=== PATIENT | female | born 1990 | race Caucasian/White ===

== ENCOUNTER 2019-06-24 09:36 | Emergency (ER) | payer OTHER, SELFPAY ==
[2019-06-24 09:40] VITALS: BP 130/79; PULSE 60; RESP 17; TEMP 36.6; O2SAT 100; BMI 37.9
--- NOTE | 2019-06-24 09:46 | ED_ITS ---
HPI - Headache General: Chief Complaint: Headache Stated Complaint: Migrane 4 days Time Seen by Provider: 06/24/19 09:43 Source: patient Mode of arrival: ambulatory Limitations: no limitations History of Present Illness: HPI Narrative: migraine WEATHERS x 4 days MD elicited complaint: headache and migraine Pertinent past history: migraines Onset (ago): day(s) Onset description: gradually Location: right, occipital and down into neck Pain scale (0-10): 8 Quality & Timing: pain radiation and similar to previous headaches Exacerbating factors: none Relieving factors: nothing Context: occurred at rest Associated symptoms: Reports no associated symptoms; Deny confusion, fever(s), nausea or vomiting Treatments prior to arrival: other (IM toradol/phenergan by PCP yesterday) Review of Systems Const: Denies: fever, chills or body aches Eyes: Denies: change in vision, blurry vision, blind spots, photophobia, eye discomfort or eye discharge ENMT: Denies: enlarged tonsils or painful swallowing GI: Denies: nausea or vomiting Neuro: Reports: headache; Denies: numbness in extremities, weakness in extremities, changes in sensation, lack of coordination, difficulty walking, dizziness or confusion PFSH ED PFSH: Statuses (acute, chronic, etc) shown below reflect problem list status as previously entered and may not be historically accurate Social History Smoking and tobacco status: never smoked Alcohol intake: never Physical Exam Const: COMMON NORMALS: no apparent distress, oriented x3, alert and well nourished NUTRITIONAL APPEARANCE: obese HENMT: COMMON NORMALS: normocephalic, head/scalp atraumatic, external ears normal, EAC's normal and TM's normal bilaterally HEAD & SCALP: normocephalic and atraumatic FACE & SINUS: normal facial exam EXTERNAL EAR: Yes external ears normal EXTERNAL AUDITORY CANAL: EAC's normal TYMPANIC MEMBRANE: TM's normal bilaterally THROAT: posterior oropharynx normal Eye: COMMON NORMALS: PERRL, EOMs intact bilaterally and conjunctivae normal CONJUNCTIVA: Yes conjunctivae normal PUPIL: Yes PERRL Neuro: JEFFRY COMA SCALE: document GCS findings [place] coma scale eye opening: Spontaneous [place] coma scale verbal response: Orientated [place] coma scale motor response: Obey commands [place] coma scale total score: 15 COMMON NORMALS: oriented x3, no focal motor deficits and no sensory deficits noted SENSORIUM/ORIENTATION: Yes alert SPEECH: speech normal Course Vital Signs: Vital signs: Vital Signs Temperature 97.8 F 06/24/19 09:40 Pulse Rate 59 L 06/24/19 11:12 Respiratory Rate 16 06/24/19 11:05 Blood Pressure 110/66 06/24/19 11:12 Pulse Oximetry 100 06/24/19 11:12 MDM - Headache MDM Narrative: Medical decision making narrative: pt comes in with typical migraine WEATHERS; WEATHERS down from an 01/16 to a -09/16; she feels comfortable going home Discharge Plan Discharge Patient Disposition: Home, Self-Care Clinical Impression: Migraine Qualifiers: Migraine type: without aura Status migrainosus presence: with status migrainosus Intractability: not intractable Qualified Code(s): G43.001 - Migraine without aura, not intractable, with status migrainosus Condition: Stable Prescriptions: No Action ibuprofen 800 mg Tablet 800 mg PO Q6H PRN (Reason: Pain) RF: 0 Vitamin D2 50,000 unit capsule 50,000 unit PO Q7D RF: 0 medroxyprogesterone 150 mg/mL syringe 150 mg IM Q3M RF: 0 Skelaxin 800 mg Tablet 800 mg PO BID RF: 0 Discharge Orders: Discharge Order (Routine); Ordered 06/24/19 Ordered By: Roseline Rojo Referrals: , [Primary Care Provider] - Discharge Diet: Usual diet Discharge Activity: Increase activity as tolerated Discharge Date/Time: 06/24/19 11:12 Coding Level of Care Code ED [employer] [facility] [facility] Exam Problem Focused
[2019-06-24 09:54] VITALS: O2SAT 98
[2019-06-24] MEDS: ketorolac 30 mg/mL INJ 15 MG IVP (10:18)
[2019-06-24] MEDS: sodium chloride 0.9% 1,000 ML 999 ML IV (10:18)
[2019-06-24] MEDS: ondansetron 2 mg/ML SDV 2 mL 4 MG IVP (10:18)
[2019-06-24] MEDS: diphenhydrAMINE 50 mg/mL SDV 1mL IVP (10:19)
[2019-06-24 11:05] VITALS: BP 110/66; PULSE 69; RESP 16; O2SAT 100
[2019-06-24 11:12] VITALS: BP 110/66; PULSE 59; O2SAT 100
== END 2019-06-24 11:12 | disposition home or self-care (01) ==
PROVIDERS: Emergency Provider Physician Assistant
DX: G43.001 Migraine without aura, not intractable, with status migrainosus (principal)
CPT/HCPCS: 96360; 96374; 99281; J1200; J1885; J2405; J7030

== ENCOUNTER 2019-12-23 14:17 | Outpatient (CLI) | payer OTHER, SELFPAY ==
--- NOTE | 2019-12-23 17:50 | ONC CON_ITS ---
Dr. Sanchez New Patient Note Patient: Lorena Arthur Unit #: [id number]: 1990 Dicatated By: Fausto Sanchez M.D.Date of Visit: Dec 23, 2019 Onc MED New Patient/Consult Referring Physician: Isabel Gomez Chief Complaint: Low B12. History of Present Illness: This is a 29 year-old woman with vitamin B12 deficiency. She had moved to this area from [place] in March 2019. Prior to that, she had been found to have a low B12 level and a low vitamin D level, and she had been started on vitamin D2 and oral vitamin B12 supplements. She had then been seen for follow-up at the [facility] in [place] on 12/06/2019. Her laboratory studies at that time included CBC which showed normal hemoglobin at 14.7 g with hematocrit 42.9%. The red cell indices were normal. The white blood cell count was 7300 and the platelet count was 248,000. Her comprehensive metabolic profile showed normal renal function with BUN 8 and creatinine 0.69 mg/dL. The total bilirubin and the liver enzymes were normal. TSH was normal at 2.210 ???IU/mL. LDH was normal at 163 IU/L. The B12 level was low at <150 pg/mL. Folate was in the low normal range at 3.5 ng/mL. The homocysteine level was normal at 10.0 ???mol/L, and a methylmalonic acid level was also normal at 117 nmol/L. With those findings, she began her first scheduled weekly B12 injection on 12/20/2019. She complains that she has been extremely tired and weak. She is able to do some light work. ECOG score is 1. She says she is not hungry and that she generally eats just 1 meal a day. Her weight, though, is stable. She does not have fever, night sweats, or hot flashes. She reports having neuropathy symptoms in her hands and she also has a tingling pain in her toes. She has had some allergy related sinus symptoms with cough, and she also has some shortness of breath. At times she feels like there is something sitting on her chest. She sometimes has nausea after eating, especially in the mornings, and she also has some acid reflux symptoms. Bowel and bladder function have been okay. She has joint pain, mainly in her left knee, right ankle, and right shoulder. She also has a lot of neck pain, and she sometimes has headache with it. She has had significant benefit with chiropractic therapy. Past Medical History: Her medical history includes anxiety/depression, migraine headaches, and vitamin D deficiency. Past Surgical History: Her surgical/procedural history includes appendectomy, Caesarean section x 3, umbilical hernia repair, and tonsillectomy. Medications: CVS D3 1 Capsule (of 125 mcg ) Oral q 7 days, Vitamin B12 1 Injection q 30 days Allergies: Bleach, Dilaudid, Levaquin, Morphine Sulfate, Procardia, Sulfa Antibiotics, and Tetanus-Diphtheria Toxoids Td. Social History: Ms. Arthur is . She is a non-smoker. She has only rare alcohol use. Family History: Both parents are living, father at age 53 and mother at age 54. He has diabetes. She has had a stroke. A brother and a sister are in good health. Her maternal grandmother had breast cancer and lymphoma. Her maternal grandfather had pancreatic cancer. Review Of Symptoms: Constitutional - She generally feels tired and her energy is low. She can do some light housework. Her appetite is poor but she is able to eat. Her weight is stable. No fever, night sweats, or hot flashes. ECOG score is 1, Eyes - No change in vision, ENMT - She has chronic allergies. She is taking Zyrtec. No mouth sores. No sore throat or difficulty swallowing. She is having some difficulty with her hearing, Hematologic/Lymphatic - She bruises easily, Respiratory - She gets short of breath. She uses an inhaler as needed. No cough. No pleuritic pain or hemoptysis, Cardiovascular - No angina pain. No palpitations, Gastrointestinal - She has nausea, mostly in the mornings. No vomiting. She has acid reflux. No diarrhea or constipation. No blood in the stool or black stools, Genitourinary (F) - No dysuria or hematuria. No urinary frequency. No urgency or incontinence, Musculoskeletal - She has joint pain in her leftt knee, in her ankle, and in her right shoulder. She also has neck pain. She sees a chiropractor for it, Integumentary - No skin complications, Neurologic - She gets migraine headaches related to neck pain. No dizziness. She has numbness and tingling in her hands and feet. No other focal neurologic symptoms, Psychiatric - She has some anxiety and depression. She does not sleep well. Vital Signs: Performed on Dec 23, 2019 14:40: 0, 38.15 (HIGH), 2.20 sq.m, 67.00 in, 97 %, 93 /min, 22 /min, 124/90 mm(hg), 98.0 F (LOW), and 243.6 lbs (HIGH). Physical Examination: Constitutional - She appears to be in good general health, Eyes - Sclerae nonicteric. Conjunctivae clear, ENMT - No lesions noted in the oral cavity, Neck - No mass or thyromegaly, Hematologic/Lymphatic - No cervical, clavicular, or axillary adenopathy, Respiratory - Lungs are clear with good air movement bilaterally, Cardiovascular - Heart rhythm is regular. There is no murmur, gallop, or rub noted, Abdomen - Distended. Liver and spleen are not enlarged. There is no abdominal mass or ascites noted and there is no inguinal adenopathy, Back/Spine - No spine or CVA tenderness noted, Extremities - No edema. Dorsalis pedis pulses are palpable bilaterally, Integumentary - No rashes. No suspicious skin lesions noted, Neurologic - No focal neurologic deficits noted. Impression: 1. Patient with a significantly low B12 level, presumed to reflect B12 deficiency, as she does have some associated neuropathy symptoms. However, there is no associated anemia, and she has normal methylmalonic acid and homocystine levels. 2. She had no response to initial oral B12 supplementation, and she has now started weekly B12 injections. Her other medical illnesses include: 3. Vitamin D deficiency. 4. Allergic rhinitis and possible asthma. 5. She has GERD symptoms. 6. Anxiety/depression. Plan: Patient has very unusual presentation with fatigue and neuropathy symptoms in association with a significantly low B12 level. This is presumed to reflect B12 deficiency, though she is not anemic, and she has normal methylmalonic acid and homocystine levels. In spite of that, I would recommend continuing with her weekly B12 replacement for 4 to 6 weeks followed by B12 injections monthly. It may be difficult, though, to monitor her response to therapy, and I would recommend continuing her replacement therapy for at least 6 to 12 months to evaluate for clinical response. In the meantime, I will check additional laboratory studies next week to include an antiparietal cell antibody study and serum iron studies/ferritin. Signed By: Fausto Sanchez M.D. <<Signature on File>>
== END 2019-12-23 14:18 | disposition home or self-care (01) ==
LOC: ONCMED 14:23
PROVIDERS: PCP Nurse Practitioner Family; Referring Provider Nurse Practitioner Family; Visit Provider Internal Medicine Medical Oncology
DX: E53.8 Deficiency of other specified B group vitamins (principal); F41.8 Other specified anxiety disorders; E55.9 Vitamin D deficiency, unspecified; G62.9 Polyneuropathy, unspecified; K21.9 Gastro-esophageal reflux disease without esophagitis
CPT/HCPCS: 99204

== ENCOUNTER → 2020-01-03 11:39 | Outpatient (BNVA) | payer OTHER, SELFPAY | PROVIDERS: PCP Nurse Practitioner Family; Visit Provider Nurse Practitioner Family | DX: E53.8 Deficiency of other specified B group vitamins (principal); J06.9 Acute upper respiratory infection, unspecified | CPT/HCPCS: 82728; 83550; 85025; 86340 ==

== ENCOUNTER → 2020-02-09 17:40 | Outpatient (BNVA) | payer SELFPAY | PROVIDERS: PCP Nurse Practitioner Family; Visit Provider Family Medicine | DX: E55.9 Vitamin D deficiency, unspecified (principal); E53.8 Deficiency of other specified B group vitamins | CPT/HCPCS: 82306; 82607 ==

== ENCOUNTER → 2020-04-25 16:42 | Outpatient (BNVA) | payer SELFPAY | PROVIDERS: PCP Nurse Practitioner Family; Visit Provider Nurse Practitioner Family | DX: E55.9 Vitamin D deficiency, unspecified (principal); E53.8 Deficiency of other specified B group vitamins; Z30.09 Encounter for other general counseling and advice on contraception | CPT/HCPCS: 80053; 81025; 82306; 82607; 85025 ==

== ENCOUNTER → 2020-09-18 17:02 | Outpatient (BNVA) | payer SELFPAY | PROVIDERS: PCP Nurse Practitioner Family; Visit Provider Nurse Practitioner Family | DX: Z30.09 Encounter for other general counseling and advice on contraception (principal); E53.8 Deficiency of other specified B group vitamins; E55.9 Vitamin D deficiency, unspecified; R73.9 Hyperglycemia, unspecified | CPT/HCPCS: 82306; 82607; 83036 ==

== ENCOUNTER → 2020-09-19 13:47 | Outpatient (BNVA) | payer SELFPAY | PROVIDERS: PCP Nurse Practitioner Family; Visit Provider Nurse Practitioner Family | DX: Z30.09 Encounter for other general counseling and advice on contraception (principal); Z78.9 Other specified health status | CPT/HCPCS: 81025 ==

== ENCOUNTER → 2021-01-03 17:40 | Outpatient (BNVA) | payer SELFPAY | PROVIDERS: PCP Nurse Practitioner Family; Visit Provider Nurse Practitioner Family | DX: E55.9 Vitamin D deficiency, unspecified (principal); R73.9 Hyperglycemia, unspecified; E53.8 Deficiency of other specified B group vitamins; J40 Bronchitis, not specified as acute or chronic | CPT/HCPCS: 80053; 80061; 82306; 82607; 83036; 84443; 85025 ==

== ENCOUNTER → 2021-02-19 18:00 | Outpatient (BNVA) | payer BC, SELFPAY | PROVIDERS: PCP Nurse Practitioner Family; Visit Provider Nurse Practitioner Family | DX: M79.671 Pain in right foot (principal); R50.9 Fever, unspecified; R53.83 Other fatigue; Z11.52 Encounter for screening for COVID-19 | CPT/HCPCS: 80053; 85025; 87635 ==

== ENCOUNTER → 2021-02-23 13:37 | Outpatient (BNVA) | payer SELFPAY | PROVIDERS: PCP Nurse Practitioner Family; Visit Provider Nurse Practitioner Family | DX: M79.671 Pain in right foot (principal); Z78.9 Other specified health status; M79.89 Other specified soft tissue disorders | CPT/HCPCS: 73630 ==

== ENCOUNTER → 2021-03-20 14:17 | Outpatient (BNVA) | payer SELFPAY | PROVIDERS: PCP Nurse Practitioner Family; Referring Provider Nurse Practitioner Family; Visit Provider Podiatrist Foot & Ankle Surgery | DX: M79.671 Pain in right foot (principal) | CPT/HCPCS: 73630 ==